=== PATIENT | female | born 1950 | race Caucasian/White ===

== ENCOUNTER → 2017-01-02 | Outpatient (REF) | payer MEDICARE, OTHER ==
[~2017-01-02] MED LIST: BIOT50004 PO; CENTTAB47 PO; FISH5CAP PO; LEVO100T5 PO; OMEP40CA2 PO; VITA200028 PO
[2017-01-02 17:35] LABS: ALBUMIN 3.9 GM/DL (3.2-5.2); ALBUMIN/GLOBULIN RATIO 1.26 (1.00-1.93); ALKALINE PHOSPHATASE 132 U/L (45-117); ALT/SGPT 30 U/L (12-78); ANION GAP 7 MEQ/L (8-16); AST/SGOT 19 U/L (15-37); BILIRUBIN,TOTAL 0.5 MG/DL (0.2-1.0); BLOOD UREA NITROGEN 12 MG/DL (7-18); CALCIUM LEVEL 8.8 MG/DL (8.8-10.2); CARBON DIOXIDE LEVEL 29 MEQ/L (21-32); CHLORIDE LEVEL 107 MEQ/L (98-107); FREE T4 1.23 NG/DL (0.76-1.46); GLOMERULAR FILTRATION RATE > 60.0 (>45); GLUCOSE, FASTING 87 MG/DL (80-110); SODIUM LEVEL 143 MEQ/L (136-145)
== END ==
LOC: M SFHCPLAZ 12:10
PROVIDERS: ATTEND Nurse Practitioner Family
DX: F32.9 Major depressive disorder, single episode, unspecified (principal); E03.9 Hypothyroidism, unspecified; E55.9 Vitamin D deficiency, unspecified

== ENCOUNTER → 2017-01-17 | Outpatient (REF) | payer MEDICARE, MEDICAID | LOC: M SFHCPLAZ 11:27 | PROVIDERS: ATTEND Nurse Practitioner Family | DX: Z11.59 Encounter for screening for other viral diseases (principal); Z11.4 Encounter for screening for human immunodeficiency virus [HIV] | CPT/HCPCS: 36415; 86803; 87899; G0463 ==

== ENCOUNTER → 2017-06-24 | Outpatient (REF) | payer MEDICARE, OTHER ==
[2017-06-24 15:56] LABS: ALBUMIN 3.9 GM/DL (3.2-5.2); ALBUMIN/GLOBULIN RATIO 1.18 (1.00-1.93); ALKALINE PHOSPHATASE 120 U/L (45-117); ALT/SGPT 30 U/L (12-78); ANION GAP 6 MEQ/L (8-16); AST/SGOT 19 U/L (15-37); BILIRUBIN,TOTAL 0.5 MG/DL (0.2-1.0); BLOOD UREA NITROGEN 16 MG/DL (7-18); CALCIUM LEVEL 9.3 MG/DL (8.8-10.2); CARBON DIOXIDE LEVEL 29 MEQ/L (21-32); CHLORIDE LEVEL 107 MEQ/L (98-107); CHOLESTEROL LEVEL 225 MG/DL (<200); CREATININE FOR GFR 0.72 MG/DL (0.55-1.02); FREE T4 1.26 NG/DL (0.76-1.46); GLOMERULAR FILTRATION RATE > 60.0 (>45); GLUCOSE, FASTING 77 MG/DL (80-110); POTASSIUM SERUM 3.9 MEQ/L (3.5-5.1); SODIUM LEVEL 142 MEQ/L (136-145); TOTAL PROTEIN 7.2 GM/DL (6.4-8.2); TRIGLYCERIDES LEVEL 152 MG/DL (<150)
== END ==
LOC: M SFHCPLAZ 10:47
PROVIDERS: ATTEND Nurse Practitioner Family
DX: E78.2 Mixed hyperlipidemia (principal); E03.9 Hypothyroidism, unspecified; E55.9 Vitamin D deficiency, unspecified

== ENCOUNTER → 2017-08-04 | Outpatient (CLI) | payer MEDICARE, MEDICAID ==
--- NOTE | 2017-08-04 15:19 | REPMRS ---
Patient History The patient states she had a clinical breast exam in 06/2017. Patient is postmenopausal and is nulliparous. No known family history of cancer. Digital Woman Screen Mammo: August 04, 2017 - Exam #: [id number] Bilateral CC and MLO view(s) were taken. Technologist: Shiloh Bardales, Technologist Prior study comparison: April 09, 2016, digital woman screen mammo performed at [facility] to [facility]. November 23, 2014, digital woman screen mammo performed at [facility] to [facility]. FINDINGS: There are scattered fibroglandular densities. There is a fairly symmetric fibroglandular pattern in both breasts. There has been no interval development of masses, areas of architectural distortion or clusters of microcalcifications typical of malignancy. ASSESSMENT: BI-RADS/ACR category 2 mammogram. Benign finding(s). Recommendation Routine screening mammogram of both breasts in 1 year (for women over age 40). This mammogram was interpreted with the aid of an FDA-approved computer-aided dectection system. Electronically Signed By: Shade Hein MD 08/04/17 [id number]
== END ==
LOC: M WHC 13:44
PROVIDERS: ATTEND Nurse Practitioner Family
DX: Z12.31 Encounter for screening mammogram for malignant neoplasm of breast (principal)

== ENCOUNTER → 2017-12-23 | Outpatient (REF) | payer MEDICARE ==
[2017-12-23 15:55] LABS: FREE T4 0.98 NG/DL (0.76-1.46)
== END ==
LOC: M SFHCPLAZ 11:55
DX: E03.9 Hypothyroidism, unspecified (principal); E55.9 Vitamin D deficiency, unspecified
CPT/HCPCS: 84443

== ENCOUNTER → 2018-01-06 | Outpatient (CLI) | payer MEDICARE, MEDICAID | LOC: M WHC 09:22 | DX: R10.32 Left lower quadrant pain (principal) | CPT/HCPCS: 76830 ==

== ENCOUNTER → 2018-01-22 | Outpatient (REF) | payer MEDICARE, MEDICAID ==
[2018-01-22 13:33] LABS: BASO % 0.7 % (0.0-1.0); EOS # 0.2 10^3/uL (0.0-0.50); EOS % 2.6 % (0.0-3.0); HEMATOCRIT 41.6 % (36.0-47.0); HEMOGLOBIN 14.2 g/dl (12.0-15.5); IMMATURE GRANULOCYTE % 0.3 % (0-3.0); LYMPH # 1.6 10^3/uL (1.5-4.5); LYMPH % 26.7 % (24.0-44.0); MEAN CORPUSCULAR HEMOGLOBIN 29.3 pg (27.0-33.0); MEAN CORPUSCULAR HGB CONC 34.1 g/dl (32.0-36.5); MONO # 0.5 10^3/uL (0.0-0.8); MONO % 9.3 % (0.0-5.0); NEUTROPHILS # 3.5 10^3/uL (1.8-7.7); NEUTROPHILS % 60.4 % (36.0-66.0); PLATELET COUNT, AUTOMATED 218 10^3/uL (150-450); RED BLOOD COUNT 4.84 10^6/uL (4.00-5.40); RED CELL DISTRIBUTION WIDTH 13.1 % (11.5-14.5); WHITE BLOOD COUNT 5.8 10^3/uL (4.0-10.0)
[2018-01-22 14:16] LABS: ALBUMIN 4.2 GM/DL (3.2-5.2); ALKALINE PHOSPHATASE 142 U/L (45-117); ALT/SGPT 26 U/L (12-78); ANION GAP 7 MEQ/L (8-16); AST/SGOT 22 U/L (7-37); BILIRUBIN,TOTAL 0.8 MG/DL (0.2-1.0); BLOOD UREA NITROGEN 15 MG/DL (7-18); CALCIUM LEVEL 9.4 MG/DL (8.8-10.2); CARBON DIOXIDE LEVEL 30 MEQ/L (21-32); CHLORIDE LEVEL 106 MEQ/L (98-107); CREATININE FOR GFR 0.87 MG/DL (0.55-1.30); GLOMERULAR FILTRATION RATE > 60.0 (>45); GLUCOSE, FASTING 98 MG/DL (70-100); POTASSIUM SERUM 4.4 MEQ/L (3.5-5.1); SODIUM LEVEL 143 MEQ/L (136-145); TOTAL PROTEIN 7.7 GM/DL (6.4-8.2)
== END ==
LOC: M SFHCPLAZ 11:38
DX: R10.32 Left lower quadrant pain (principal)
CPT/HCPCS: 80053

== ENCOUNTER 2018-02-20 12:37 | Emergency (ER) | payer MEDICARE, MEDICAID ==
[2018-02-20] MEDS: KETOROLAC TROMETHAMINE 10 MG TAB PO (13:47)
== END 2018-02-20 15:43 | disposition home or self-care (01) ==
LOC: M ED 12:37
DX: S83.92XA Sprain of unspecified site of left knee, initial encounter (principal); W10.8XXA Fall (on) (from) other stairs and steps, initial encounter; Y92.018 Other place in single-family (private) house as the place of occurrence of the external cause; E03.9 Hypothyroidism, unspecified; Z79.890 Hormone replacement therapy; Z88.5 Allergy status to narcotic agent; Z88.8 Allergy status to other drugs, medicaments and biological substances
CPT/HCPCS: 73564

== ENCOUNTER → 2018-04-30 | Outpatient (REF) | payer MEDICARE, MEDICAID ==
[2018-04-30 16:09] LABS: FREE T4 1.16 NG/DL (0.76-1.46)
== END ==
LOC: M SFHCPLAZ 12:55
DX: E03.9 Hypothyroidism, unspecified (principal); E55.9 Vitamin D deficiency, unspecified
CPT/HCPCS: 84443

== ENCOUNTER → 2018-08-05 | Outpatient (REF) | payer MEDICARE, MEDICAID ==
[2018-08-05 12:28] LABS: ALBUMIN 3.7 GM/DL (3.2-5.2); ALBUMIN/GLOBULIN RATIO 1.19 (1.00-1.93); ALKALINE PHOSPHATASE 114 U/L (45-117); ALT/SGPT 31 U/L (12-78); ANION GAP 8 MEQ/L (8-16); AST/SGOT 22 U/L (7-37); BILIRUBIN,TOTAL 0.5 MG/DL (0.2-1.0); BLOOD UREA NITROGEN 11 MG/DL (7-18); CARBON DIOXIDE LEVEL 29 MEQ/L (21-32); CHLORIDE LEVEL 107 MEQ/L (98-107); CHOLESTEROL LEVEL 207 MG/DL (<200); CHOLESTEROL RISK RATIO 3.763 (<5); CREATININE FOR GFR 0.75 MG/DL (0.55-1.30); FREE T4 1.22 NG/DL (0.76-1.46); GLOMERULAR FILTRATION RATE > 60.0 (>45); GLUCOSE, FASTING 89 MG/DL (70-100); HDL CHOLESTEROL 55 MG/DL (>40); LDL CHOLESTEROL 111 MG/DL (<100); NON-HDL-C 152 MG/DL; POTASSIUM SERUM 4.3 MEQ/L (3.5-5.1); SODIUM LEVEL 144 MEQ/L (136-145); THYROID STIMULATING HORMONE 0.605 uIU/ML (0.358-3.740); TOTAL 25(OH) VITAMIN D 47.7 NG/ML (30.0-100.0); TOTAL PROTEIN 6.8 GM/DL (6.4-8.2); TRIGLYCERIDES LEVEL 206 MG/DL (<150)
== END ==
LOC: M SFHCPLAZ 08:05
DX: E78.2 Mixed hyperlipidemia (principal); E03.9 Hypothyroidism, unspecified; E55.9 Vitamin D deficiency, unspecified
CPT/HCPCS: 84443

== ENCOUNTER → 2018-11-05 | Outpatient (CLI) | payer MEDICARE, MEDICAID ==
[~2018-11-05] MED LIST changes: +MOBI4TAB PO
[2018-11-05 09:14] LABS: ALT/SGPT 26 U/L (12-78); BILIRUBIN,TOTAL 0.6 MG/DL (0.2-1.0); BLOOD UREA NITROGEN 12 MG/DL (7-18); CALCIUM LEVEL 9.6 MG/DL (8.8-10.2); CARBON DIOXIDE LEVEL 28 MEQ/L (21-32); CHLORIDE LEVEL 106 MEQ/L (98-107); CHOLESTEROL LEVEL 250 MG/DL (<200); CHOLESTEROL RISK RATIO 3.846 (<5); CREATININE FOR GFR 0.84 MG/DL (0.55-1.30); FREE T4 1.31 NG/DL (0.76-1.46); GLOMERULAR FILTRATION RATE > 60.0 (>45); GLUCOSE, FASTING 97 MG/DL (70-100); HDL CHOLESTEROL 65 MG/DL (>40); LDL CHOLESTEROL 161 MG/DL (<100); NON-HDL-C 185 MG/DL; POTASSIUM SERUM 3.9 MEQ/L (3.5-5.1); SODIUM LEVEL 141 MEQ/L (136-145); TRIGLYCERIDES LEVEL 120 MG/DL (<150)
== END ==
LOC: M LAB 08:04
PROVIDERS: ATTEND Nurse Practitioner Family
DX: E78.2 Mixed hyperlipidemia (principal)

== ENCOUNTER → 2019-01-18 | Outpatient (REF) | payer MEDICARE, MEDICAID ==
[2019-01-18 12:58] LABS: ALT/SGPT 34 U/L (12-78); BILIRUBIN,TOTAL 0.6 MG/DL (0.2-1.0); BLOOD UREA NITROGEN 14 MG/DL (7-18); CALCIUM LEVEL 9.5 MG/DL (8.8-10.2); CARBON DIOXIDE LEVEL 30 MEQ/L (21-32); CHLORIDE LEVEL 107 MEQ/L (98-107); CHOLESTEROL LEVEL 207 MG/DL (<200); CHOLESTEROL RISK RATIO 3.285 (<5); CREATININE FOR GFR 0.86 MG/DL (0.55-1.30); FREE T4 1.29 NG/DL (0.76-1.46); GLOMERULAR FILTRATION RATE > 60.0 (>45); GLUCOSE, FASTING 96 MG/DL (70-100); HDL CHOLESTEROL 63 MG/DL (>40); LDL CHOLESTEROL 114 MG/DL (<100); NON-HDL-C 144 MG/DL; POTASSIUM SERUM 4.6 MEQ/L (3.5-5.1); SODIUM LEVEL 141 MEQ/L (136-145); TOTAL PROTEIN 6.9 GM/DL (6.4-8.2); TRIGLYCERIDES LEVEL 149 MG/DL (<150)
== END ==
LOC: M SFHCPLAZ 08:17
PROVIDERS: ATTEND Nurse Practitioner Family
DX: E78.2 Mixed hyperlipidemia (principal); E03.9 Hypothyroidism, unspecified

== ENCOUNTER → 2019-01-26 | Outpatient (REF) | payer MEDICARE, MEDICAID | LOC: M SFHCPLAZ 16:10 | PROVIDERS: ATTEND Nurse Practitioner Family | DX: R31.0 Gross hematuria (principal); Z53.8 Procedure and treatment not carried out for other reasons ==

== ENCOUNTER → 2019-01-27 | Outpatient (REF) | payer MEDICARE, MEDICAID ==
[2019-01-27 17:05] LABS: APPEARANCE, URINE CLEAR (CLEAR); BACTERIA, URINE AUTO NEGATIVE (NEGATIVE); BILIRUBIN, URINE AUTO NEGATIVE (NEGATIVE); BLOOD, URINE BLOOD NEGATIVE (NEGATIVE); COLOR, URINE YELLOW (YELLOW); GLUCOSE, URINE (UA) AUTO NEGATIVE (NEGATIVE); KETONE, URINE AUTO NEGATIVE (NEGATIVE); LEUKOCYTE ESTERASE, URINE AUTO TRACE (NEGATIVE); NITRITE, URINE AUTO NEGATIVE (NEGATIVE); PROTEIN, URINE AUTO NEGATIVE (NEGATIVE); RBC, URINE AUTO 2 /HPF (0-3); SQUAMOUS EPITHELIAL CELL UR AU 0 /HPF (0-6); UROBILINOGEN, URINE AUTO 0.2 mg/dL (0.0-2.0); WBC, URINE AUTO 1 /HPF (0-3)
[2019-01-27 17:22] LABS: BASO % 0.7 % (0.0-1.0); EOS # 0.1 10^3/uL (0.0-0.50); HEMATOCRIT 40.4 % (36.0-47.0); HEMOGLOBIN 13.3 g/dl (12.0-15.5); LYMPH # 1.3 10^3/uL (1.5-4.5); LYMPH % 22.3 % (24.0-44.0); MEAN CORPUSCULAR HEMOGLOBIN 29.2 pg (27.0-33.0); MEAN CORPUSCULAR HGB CONC 32.9 g/dl (32.0-36.5); MEAN CORPUSCULAR VOLUME 88.8 fl (80.0-96.0); MONO # 0.5 10^3/uL (0.0-0.8); MONO % 7.8 % (0.0-5.0); NEUTROPHILS % 66.7 % (36.0-66.0); PLATELET COUNT, AUTOMATED 198 10^3/uL (150-450); RED BLOOD COUNT 4.55 10^6/uL (4.00-5.40); WHITE BLOOD COUNT 5.9 10^3/uL (4.0-10.0)
== END ==
LOC: M SFHCPLAZ 12:08
PROVIDERS: ATTEND Nurse Practitioner Family
DX: R31.0 Gross hematuria (principal); Z12.11 Encounter for screening for malignant neoplasm of colon
CPT/HCPCS: 36415; 81001; 85025; 87086; G0328

== ENCOUNTER → 2019-02-03 | Outpatient (CLI) | payer MEDICARE, MEDICAID ==
--- NOTE | 2019-02-03 07:33 | REP ---
Renal ultrasound for gross hematuria: Comparison is the abdomen and pelvis CT dated 04/08/2011. The right kidney measures 10.3 x 5.2 x 4.3 cm and is normal size. The left kidney measures 9.4 x 5.9 x 4.7 and is in the low normal size range. Renal cortical echogenicity is normal bilaterally. There is no hydronephrosis on the right on the left. There are no renal calculi. There are no solid or cystic renal masses. Bladder: The bladder appears adequately distended. No bladder wall masses or polyps are identified. Impression: The left kidney is in the low normal size range. Otherwise, negative renal and bladder ultrasound. Electronically Signed by Shade Ayala MD 02/03/2019 07:25 A
== END ==
LOC: M RAD 06:14
PROVIDERS: ATTEND Nurse Practitioner Family
DX: R31.0 Gross hematuria (principal)

== ENCOUNTER → 2019-03-30 | Outpatient (CLI) | payer MEDICARE, MEDICAID ==
--- NOTE | 2019-03-30 11:02 | REPMRS ---
Patient History The patient states she had a clinical breast exam in 02/2019. No known family history of cancer. 3D TOMOSYNTHESIS WAS PERFORMED. The [facility] lifetime risk for breast cancer is 6.9%. Digital Woman Screen Mammo: March 30, 2019 - Exam #: [id number] Bilateral CC and MLO view(s) were taken. Technologist: Jackeline Harp Technologist Prior study comparison: August 04, 2017, digital woman screen mammo performed at [facility]. April 09, 2016, digital woman screen mammo performed at [facility]. FINDINGS: There are scattered fibroglandular densities. There is a fairly symmetric fibroglandular pattern in both breasts. There has been no interval development of masses, areas of architectural distortion or clusters of microcalcifications typical of malignancy. Assessment: BI-RADS/ACR category 2 mammogram. Benign Findings. Recommendation Routine screening mammogram of both breasts in 1 year (for women over age 40). This mammogram was interpreted with the aid of an FDA-approved computer-aided dectection system. Electronically Signed By: Shade Hein MD 03/30/19 [id number]
== END ==
LOC: M WHC 08:07
PROVIDERS: ATTEND Nurse Practitioner Family
DX: Z12.31 Encounter for screening mammogram for malignant neoplasm of breast (principal)

== ENCOUNTER → 2019-07-16 | Outpatient (REF) | payer MEDICARE, MEDICAID ==
[~2019-07-16] MED LIST changes: -OMEP40CA2 PO; +OMEP40CA97 PO
[2019-07-16 15:34] LABS: ALBUMIN 3.8 GM/DL (3.2-5.2); ALT/SGPT 28 U/L (12-78); BILIRUBIN,TOTAL 0.6 MG/DL (0.2-1.0); BLOOD UREA NITROGEN 17 MG/DL (7-18); CALCIUM LEVEL 9.3 MG/DL (8.8-10.2); CARBON DIOXIDE LEVEL 29 MEQ/L (21-32); CHLORIDE LEVEL 107 MEQ/L (98-107); CHOLESTEROL LEVEL 233 MG/DL (<200); CHOLESTEROL RISK RATIO 3.819 (<5); CREATININE FOR GFR 0.82 MG/DL (0.55-1.30); FREE T4 1.07 NG/DL (0.76-1.46); GLOMERULAR FILTRATION RATE > 60.0 (>39); GLUCOSE, FASTING 92 MG/DL (70-100); HDL CHOLESTEROL 61 MG/DL (>40); LDL CHOLESTEROL 133 MG/DL (<100); NON-HDL-C 172 MG/DL; POTASSIUM SERUM 4.1 MEQ/L (3.5-5.1); SODIUM LEVEL 142 MEQ/L (136-145); TOTAL PROTEIN 7.1 GM/DL (6.4-8.2); TRIGLYCERIDES LEVEL 195 MG/DL (<150)
== END ==
LOC: M SFHCPLAZ 12:43
PROVIDERS: ATTEND Nurse Practitioner Family
DX: E78.2 Mixed hyperlipidemia (principal); E03.9 Hypothyroidism, unspecified; E55.9 Vitamin D deficiency, unspecified

== ENCOUNTER → 2019-09-29 | Outpatient (REF) | payer MEDICARE, MEDICAID ==
[~2019-09-29] MED LIST changes: +BAYE500T2 PO
== END ==
LOC: M LAB REF 09:44
PROVIDERS: ATTEND Dermatology
DX: L82.1 Other seborrheic keratosis (principal); D23.5 Other benign neoplasm of skin of trunk; L81.4 Other melanin hyperpigmentation; L57.8 Other skin changes due to chronic exposure to nonionizing radiation

== ENCOUNTER 2019-10-15 14:27 | Emergency (ER) | payer MEDICARE, MEDICAID ==
[~2019-10-15] VITALS: Ht 157.5 cm; Wt 87.3 kg
[~2019-10-15 14:27] MED LIST changes: -BAYE500T2 PO
[2019-10-15] MEDS ORDERED: BAYE500T2 PO (15:09)
[2019-10-15] MEDS ORDERED: PANTOPRAZOLE 40MG TAB (PROTONIX) PO ONE (16:00)
[2019-10-15] MEDS ORDERED: ACETAMINOPHEN 650MG ER TAB (TYLENOL ARTHRITIS) PO PRN (16:00)
--- NOTE | 2019-10-15 16:32 | REP ---
Thoracic spine four views: Comparison is the PA and lateral chest dated 05/30/2008. Vertebral body heights, interspacing alignment are normal and unchanged. There is mild degenerative disc disease in the mid thoracic spine. The pedicles are unremarkable. There are no lytic, blastic or destructive changes. Impression: Mild mid thoracic spine degenerative disc disease. Electronically Signed by Shade Ayala MD 10/15/2019 04:24 P
--- NOTE | 2019-10-15 16:33 | REP ---
Lumbar spine five views: There are no comparisons. There is scoliosis convex right. Vertebral body heights and alignment are normal. There is degenerative disc disease from L1 through L4. There is no spondylolysis or spondylolisthesis. The pedicles, facets and sacroiliac articulations are unremarkable. Impression: Scoliosis and degenerative disc disease. Otherwise, negative lumbar spine. Electronically Signed by Shade Ayala MD 10/15/2019 04:25 P
[2019-10-15 16:58] VITALS: BP 145/74
== END 2019-10-15 16:59 | disposition home or self-care (01) ==
LOC: M ED 14:27
DX: M51.35 Other intervertebral disc degeneration, thoracolumbar region (principal); M51.37 Other intervertebral disc degeneration, lumbosacral region; Z88.5 Allergy status to narcotic agent; Z88.8 Allergy status to other drugs, medicaments and biological substances; Z79.899 Other long term (current) drug therapy; Z79.82 Long term (current) use of aspirin; Z79.890 Hormone replacement therapy

== ENCOUNTER → 2019-10-21 | Outpatient (CLI) | payer MEDICARE, MEDICAID ==
[~2019-10-21] MED LIST changes: +BAYE500T2 PO; +GASTROGRAFIN SOLUTION 30ML (Q9963) As Ordered ONE; +ISOVUE-370 76% 100ML VIAL (Q9967) As Ordered ONE
[2019-10-21 12:39] LABS: BASO # 0.1 10^3/uL (0.0-0.2); BASO % 0.7 % (0.0-1.0); EOS # 0.2 10^3/uL (0.0-0.5); EOS % 2.5 % (0.0-3.0); HEMATOCRIT 41.1 % (36.0-47.0); HEMOGLOBIN 14.1 g/dl (12.0-15.5); LYMPH # 1.6 10^3/uL (1.5-5.0); LYMPH % 24.1 % (24.0-44.0); MEAN CORPUSCULAR HEMOGLOBIN 29.7 pg (27.0-33.0); MEAN CORPUSCULAR HGB CONC 34.3 g/dl (32.0-36.5); MEAN CORPUSCULAR VOLUME 86.5 fl (80.0-96.0); MONO # 0.6 10^3/uL (0.0-0.8); MONO % 8.4 % (0.0-5.0); NEUTROPHILS # 4.3 10^3/uL (1.5-8.5); PLATELET COUNT, AUTOMATED 229 10^3/uL (150-450); RED BLOOD COUNT 4.75 10^6/uL (4.00-5.40); WHITE BLOOD COUNT 6.7 10^3/uL (4.0-10.0)
[2019-10-21 13:07] LABS: ALBUMIN 4.1 GM/DL (3.2-5.2); ALT/SGPT 25 U/L (12-78); AMYLASE 39 U/L (25-115); BILIRUBIN,TOTAL 0.5 MG/DL (0.2-1.0); BLOOD UREA NITROGEN 14 MG/DL (7-18); CALCIUM LEVEL 9.4 MG/DL (8.8-10.2); CARBON DIOXIDE LEVEL 28 MEQ/L (21-32); CHLORIDE LEVEL 110 MEQ/L (98-107); CREATININE FOR GFR 0.83 MG/DL (0.55-1.30); GLOMERULAR FILTRATION RATE > 60.0 (>39); GLUCOSE, FASTING 91 MG/DL (70-100); LIPASE 119 U/L (73-393); POTASSIUM SERUM 3.8 MEQ/L (3.5-5.1); SODIUM LEVEL 143 MEQ/L (136-145); TOTAL PROTEIN 7.3 GM/DL (6.4-8.2)
--- NOTE | 2019-10-21 14:38 | REP ---
CT of the abdomen and pelvis with IV contrast, without bowel contrast for rectal bleeding: Comparison is 04/08/2011. The visualized lung smith are unremarkable except for a small infiltrate at the inferior tip of the lingula. The hepatic parenchyma is homogeneous. The gallbladder is unremarkable. The pancreas and spleen are unremarkable except for a few splenic calcified granulomas. The adrenals are unremarkable. The kidneys are unremarkable. The abdominal aorta is unremarkable. There is no periaortic adenopathy or mass. There is no bowel distension or obstruction. There is no evidence of bowel or mesentery inflammation. There is no fluid or abscess. There is no diverticulosis or diverticulitis. Pelvis: The appendix is unremarkable. The uterus, adnexa and bladder are unremarkable. There is no adenopathy or ascites. There is a small fat-containing umbilical hernia. On the prior study there was a lipoma in the anterolateral abdominal wall on the left. This is no longer present. Impression: The bowel and mesentery are unremarkable by CT. No bowel masses are identified, however, CT is insensitive. No bowel or mesenteric inflammatory changes are identified. There is no bowel distension or obstruction. There is a small infiltrate at the inferior tip of the lingula in the visualized lower lung smith. Otherwise, negative CT of the abdomen pelvis except for a small fat-containing umbilical hernia. Electronically Signed by Shade Ayala MD 10/21/2019 02:30 P
== END ==
LOC: M RAD 11:34
PROVIDERS: ATTEND Nurse Practitioner Family
DX: K42.9 Umbilical hernia without obstruction or gangrene (principal); R91.8 Other nonspecific abnormal finding of lung field; K62.5 Hemorrhage of anus and rectum; R10.84 Generalized abdominal pain
CPT/HCPCS: 36415; 74177; 80053; 82150; 83690; 85025; Q9963; Q9967

== ENCOUNTER → 2019-10-21 | Outpatient (REF) | payer MEDICARE, MEDICAID ==
[~2019-10-21] MED LIST changes: -GASTROGRAFIN SOLUTION 30ML (Q9963) As Ordered ONE; -ISOVUE-370 76% 100ML VIAL (Q9967) As Ordered ONE
== END ==
LOC: M SFHCPLAZ 10:46
PROVIDERS: ATTEND Nurse Practitioner Family
DX: K62.5 Hemorrhage of anus and rectum (principal); R10.84 Generalized abdominal pain; Z53.8 Procedure and treatment not carried out for other reasons

== ENCOUNTER → 2019-11-25 | Day surgery (SDC) | payer MEDICARE, MEDICAID ==
[~2019-11-25] VITALS: Ht 157.5 cm; Wt 85.7 kg
[~2019-11-25] MED LIST changes: +CENT1TAB PO; +KP F1200 PO; +LIDOCAINE 2% INJ 100 MG/5 ML SDV (FOR ANES.) As Ordered ONE; +NS 1,000 ML IV ONE; +propofoL 200 MG/20 ML VIAL As Ordered ONE
--- NOTE | 2019-11-25 08:59 | ROOR ---
Patient Name: Nancy Pineda Procedure Date: 11/25/2019 8:25 AM Date of : 1950 Age: 69 Room: [facility] Gender: Female Note Status: Finalized Procedure: Colonoscopy Indications: Screening for colorectal malignant neoplasm Providers: Raj Carrillo Jr, MD Referring MD: Becky Hill NP Requesting Provider: Medicines: Propofol per Anesthesia Complications: No immediate complications. Procedure: Pre-Anesthesia Assessment: - Prior to the procedure, a History and Physical was performed, and patient medications and allergies were reviewed. The patient is competent. The risks and benefits of the procedure and the sedation options and risks were discussed with the patient. All questions were answered and informed consent was obtained. Patient identification and proposed procedure were verified by the physician and the nurse in the pre-procedure area and in the procedure room. Mental Status Examination: alert and oriented. Airway Examination: normal oropharyngeal airway and neck mobility. Respiratory Examination: clear to auscultation. CV Examination: normal. ASA Grade Assessment: II - A patient with mild systemic disease. After reviewing the risks and benefits, the patient was deemed in satisfactory condition to undergo the procedure. The anesthesia plan was to use moderate sedation / analgesia (conscious sedation). Immediately prior to administration of medications, the patient was re-assessed for adequacy to receive sedatives. The heart rate, respiratory rate, oxygen saturations, blood pressure, adequacy of pulmonary ventilation, and response to care were monitored throughout the procedure. The physical status of the patient was re-assessed after the procedure. The Colonoscope was introduced through the anus and advanced to the cecum, identified by appendiceal orifice and ileocecal valve. The colonoscopy was performed without difficulty. The patient tolerated the procedure well. The quality of the bowel preparation was adequate. Findings: The rectum, recto-sigmoid colon, sigmoid colon, descending colon, transverse colon, ascending colon, cecum, appendiceal orifice and ileocecal valve appeared normal. Non-bleeding external and internal hemorrhoids were found during endoscopy. The hemorrhoids were moderate. Impression: - The rectum, recto-sigmoid colon, sigmoid colon, descending colon, transverse colon, ascending colon, cecum, appendiceal orifice and ileocecal valve are normal. - Non-bleeding external and internal hemorrhoids. - No specimens collected. Recommendation: - Repeat colonoscopy in 10 years for screening purposes. Raj Carrillo MD Raj Carrillo Jr, MD 11/25/2019 8:59:05 AM Electronically signed by Raj Carrillo Jr, MD Number of Addenda: 0 Note Initiated On: 11/25/2019 8:25 AM Estimated Blood Loss: Estimated blood loss: none.
[2019-11-25 09:05] VITALS: BP 163/72
== END | disposition home or self-care (01) ==
LOC: M OPP 07:32
PROVIDERS: ATTEND Surgery
DX: Z12.11 Encounter for screening for malignant neoplasm of colon (principal); K64.8 Other hemorrhoids; I10 Essential (primary) hypertension; E03.9 Hypothyroidism, unspecified; K21.9 Gastro-esophageal reflux disease without esophagitis; M19.90 Unspecified osteoarthritis, unspecified site; F41.9 Anxiety disorder, unspecified; F32.9 Major depressive disorder, single episode, unspecified; Z79.82 Long term (current) use of aspirin; Z79.899 Other long term (current) drug therapy; Z88.6 Allergy status to analgesic agent; Z88.5 Allergy status to narcotic agent

== ENCOUNTER → 2020-01-14 | Outpatient (REF) | payer MEDICARE, MEDICAID ==
[~2020-01-14] MED LIST changes: -LIDOCAINE 2% INJ 100 MG/5 ML SDV (FOR ANES.) As Ordered ONE; -NS 1,000 ML IV ONE; -propofoL 200 MG/20 ML VIAL As Ordered ONE
[2020-01-14 18:18] LABS: FREE T4 1.27 NG/DL (0.76-1.46); THYROID STIMULATING HORMONE 0.371 uIU/ML (0.358-3.740)
[2020-01-14 18:21] LABS: TOTAL 25(OH) VITAMIN D 35.2 NG/ML (30.0-100.0)
== END ==
LOC: M PLALAB 13:37
PROVIDERS: ATTEND Nurse Practitioner Family
DX: E03.9 Hypothyroidism, unspecified (principal); E55.9 Vitamin D deficiency, unspecified

== ENCOUNTER → 2020-06-21 | Outpatient (CLI) | payer MEDICARE, MEDICAID ==
--- NOTE | 2020-06-21 10:39 | REPMRS ---
Patient History The patient states she had a clinical breast exam in March 2020. No known family history of cancer. 3D TOMOSYNTHESIS WAS PERFORMED. The [facility] lifetime risk for breast cancer is 6.2%. VOLPARA DENSITY A. Digital Woman Screen Mammo: June 21, 2020 - Exam #: [id number] Bilateral CC and MLO view(s) were taken. Technologist: Camilla Reinoso, Technologist Prior study comparison: March 30, 2019, bilateral digital woman screen mammo performed at [facility]. August 04, 2017, digital woman screen mammo performed at [facility]. FINDINGS: There are scattered fibroglandular densities. There has been no change in the appearance of the mammogram from the prior studies. There is a mild amount of residual fibroglandular tissue which is fairly symmetric. There is no interval development of dominant mass, architectural distortion, or clustered microcalcification suggestive of malignancy. Assessment: BI-RADS/ACR category 1 mammogram. Negative Mammogram. Recommendation Routine screening mammogram in 1 year (for women over age 40). This mammogram was interpreted with the aid of an FDA-approved computer-aided dectection system. Electronically Signed By: Shade Hein MD 06/21/20 [id number]
== END ==
LOC: M WHC 09:37
PROVIDERS: ATTEND Nurse Practitioner Family
DX: Z12.31 Encounter for screening mammogram for malignant neoplasm of breast (principal)

== ENCOUNTER → 2020-07-12 | Outpatient (REF) | payer MEDICARE, MEDICAID ==
[2020-07-12 15:50] LABS: ALBUMIN 3.8 GM/DL (3.2-5.2); ALT/SGPT 30 U/L (12-78); BILIRUBIN,TOTAL 0.5 MG/DL (0.2-1.0); BLOOD UREA NITROGEN 10 MG/DL (7-18); CALCIUM LEVEL 9.3 MG/DL (8.8-10.2); CARBON DIOXIDE LEVEL 30 MEQ/L (21-32); CHLORIDE LEVEL 108 MEQ/L (98-107); CHOLESTEROL LEVEL 234 MG/DL (<200); CHOLESTEROL RISK RATIO 3.656 (<5); CREATININE FOR GFR 0.74 MG/DL (0.55-1.30); FREE T4 1.19 NG/DL (0.76-1.46); GLOMERULAR FILTRATION RATE > 60.0 (>39); GLUCOSE, FASTING 89 MG/DL (70-100); HDL CHOLESTEROL 64 MG/DL (>40); LDL CHOLESTEROL 123 MG/DL (<100); NON-HDL-C 170 MG/DL; POTASSIUM SERUM 4.5 MEQ/L (3.5-5.1); SODIUM LEVEL 141 MEQ/L (136-145); THYROID STIMULATING HORMONE 0.607 uIU/ML (0.358-3.740); TOTAL PROTEIN 7.3 GM/DL (6.4-8.2); TRIGLYCERIDES LEVEL 233 MG/DL (<150)
[2020-07-12 16:44] LABS: TOTAL 25(OH) VITAMIN D 29.1 NG/ML (30.0-100.0)
== END ==
LOC: M PLALAB 12:05
PROVIDERS: ATTEND Nurse Practitioner Family
DX: E03.9 Hypothyroidism, unspecified (principal); E78.2 Mixed hyperlipidemia; E55.9 Vitamin D deficiency, unspecified

== ENCOUNTER → 2021-01-08 | Outpatient (REF) | payer MEDICARE, MEDICAID ==
[2021-01-08 17:20] LABS: FREE T4 1.17 NG/DL (0.76-1.46); THYROID STIMULATING HORMONE 2.56 uIU/ML (0.358-3.740)
[2021-01-08 17:28] LABS: TOTAL 25(OH) VITAMIN D 29.8 NG/ML (30.0-100.0)
== END ==
LOC: M PLALAB 10:54
PROVIDERS: ATTEND Nurse Practitioner Family
DX: E03.9 Hypothyroidism, unspecified (principal); E55.9 Vitamin D deficiency, unspecified

== ENCOUNTER → 2021-03-07 | Outpatient (CLI) | payer MEDICARE, MEDICAID ==
[~2021-03-07] MED LIST changes: +OMEP40CA4 PO; -OMEP40CA97 PO
--- NOTE | 2021-03-07 15:47 | REPPI ---
INDICATION: R07.89 OTHER CHEST PAIN. COMPARISON: 05/30/2008 TECHNIQUE: PA and lateral views FINDINGS: There are mild basilar fibrotic changes status ". No acute patchy parenchymal opacities or pleural effusions have developed. The heart is not enlarged. The pleural angles are sharp. The osseous structures stable. IMPRESSION: There is no acute cardiopulmonary disease. <Electronically signed by James Knight > 03/07/21 [id number]
== END ==
LOC: M PLAIMG 12:52
PROVIDERS: ATTEND Nurse Practitioner Family
DX: R07.89 Other chest pain (principal); R00.2 Palpitations
CPT/HCPCS: 36415; 71046; 80053; 84484; 93005; G0463

== ENCOUNTER → 2021-03-07 | Outpatient (REF) | payer MEDICARE, MEDICAID ==
[2021-03-07 14:03] LABS: ALBUMIN 4.3 GM/DL (3.2-5.2); ALT/SGPT 25 U/L (12-78); BILIRUBIN,TOTAL 0.6 MG/DL (0.2-1.0); BLOOD UREA NITROGEN 17 MG/DL (7-18); CALCIUM LEVEL 9.5 MG/DL (8.8-10.2); CARBON DIOXIDE LEVEL 26 MEQ/L (21-32); CHLORIDE LEVEL 110 MEQ/L (98-107); CREATININE FOR GFR 0.77 MG/DL (0.55-1.30); GLOMERULAR FILTRATION RATE > 60.0 (>39); GLUCOSE, FASTING 90 MG/DL (70-100); SODIUM LEVEL 142 MEQ/L (136-145); TOTAL PROTEIN 7.4 GM/DL (6.4-8.2); TROPONIN I < 0.02 NG/ML (< 0.10)
== END ==
LOC: M SFHCPLAZ 12:10
PROVIDERS: ATTEND Nurse Practitioner Family
DX: R07.89 Other chest pain (principal); R00.2 Palpitations

== ENCOUNTER → 2021-04-18 | Outpatient (CLI) | payer MEDICARE, MEDICAID ==
[2021-04-18 12:06] LABS: BLOOD UREA NITROGEN 14 MG/DL (7-18); CALCIUM LEVEL 9.7 MG/DL (8.8-10.2); CARBON DIOXIDE LEVEL 28 MEQ/L (21-32); CHLORIDE LEVEL 108 MEQ/L (98-107); CREATININE FOR GFR 0.87 MG/DL (0.55-1.30); FREE T4 1.17 NG/DL (0.76-1.46); GLOMERULAR FILTRATION RATE > 60.0 (>39); GLUCOSE, FASTING 91 MG/DL (70-100); POTASSIUM SERUM 4.1 MEQ/L (3.5-5.1); SODIUM LEVEL 141 MEQ/L (136-145); TOTAL 25(OH) VITAMIN D 37.2 NG/ML (30.0-100.0)
== END ==
LOC: M PLALAB 08:05
PROVIDERS: ATTEND Nurse Practitioner Family
DX: R00.2 Palpitations (principal)

== ENCOUNTER → 2021-04-27 | Outpatient (CLI) | payer MEDICARE, MEDICAID | LOC: M PLALAB 14:53 | PROVIDERS: ATTEND Nurse Practitioner Family | DX: R06.00 Dyspnea, unspecified (principal) ==

== ENCOUNTER → 2021-05-18 | Outpatient (CLI) | payer MEDICARE, MEDICAID ==
--- NOTE | 2021-05-18 14:56 | REP ---
INDICATION: LEFT BREAST PAIN. Left breast pain with a possible lump in the medial aspect of the left breast for 2 years. Lump size of a cord ower. 9 o'clock position. COMPARISON: Comparison mammography June 21, 2020, March 30, 2019, and August 04, 2017. TECHNIQUE: A skin marker is affixed to the skin at the site of the palpable lump and routine views are obtained. These views are augmented by true mediolateral, magnified focal spot-compression CC and MLO views, and 3D tomography. Targeted left breast sonography is performed at the site of the palpable lump as well. This mammogram was interpreted with the aid of an FDA-approved computer-aided detection system. FINDINGS: On mammography, breast parenchyma is predominantly fat replaced. There are 2 stable well-circumscribed nodular densities in the lateral aspect of the left breast unchanged from multiple prior mammography including the 2017 prior study. In the medial aspect of the left breast where the skin marker is affixed denoting the site of the palpable lump, the breast parenchyma is fat replaced. No soft tissue mass is seen. No architectural distortion, microcalcification or worrisome skin changes appreciated. No mammographically suspicious abnormality. 3D tomography shows no additional abnormality. The Volpara volumetric breast density pattern is a. Targeted ultrasound: Targeted left breast sonography demonstrates fairly homogeneous fibroglandular background echotexture. There is an essentially isoechoic lobule of subcutaneous fat at the site of the palpable lump measuring 2.1 x 0.1 by 1.8 cm. This could be a subcutaneous lipoma. No sonographically suspicious finding is seen. IMPRESSION: BIRADS/ACR category 2 benign left breast mammographic and sonographic findings. This patient's Tyrer-Cuzick lifetime breast cancer risk assessment score is 5.8%. RECOMMENDATION: Repeat screening mammography recommended 1 year (for women over 40). Clinical follow-up regarding patient's breast symptoms. The patient letter being requested is M2. <Electronically signed by Jaime Hickey > 05/18/21 0009
== END ==
LOC: M WHC 13:22
PROVIDERS: ATTEND Nurse Practitioner Family
DX: N64.4 Mastodynia (principal)
CPT/HCPCS: 76642; 77065; G0279

== ENCOUNTER → 2021-08-10 | Outpatient (CLI) | payer MEDICARE, MEDICAID ==
--- NOTE | 2021-08-10 12:41 | REPMRS ---
Patient History The patient states she had a clinical breast exam in March 2021. Family history of colorectal cancer at age 94 in mother. Patient states no breast complaints today. Patient has signed MRS History Sheet. Digital Woman Screen Mammo: August 10, 2021 - Exam #: [id number] Bilateral CC and MLO view(s) were taken. Technologist: Camilla Reinoso Technologist Prior study comparison: May 18, 2021, left breast diagnostic unilateral mammo performed at [facility]. June 21, 2020, bilateral digital woman screen mammo performed at [facility]. FINDINGS: There are scattered fibroglandular densities. Screening. Digital screening (2D) mammography was performed bilaterally in the CC and MLO projections. Additionally, breast tomosynthesis (3D mammography) was performed bilaterally in the CC and MLO projections. Todays exam was compared to the prior exam/exams. By history, the patient has no complaints of a palpable breast abnormality or other significant breast complaints. The Volpara volumetric breast density category is A, the breasts are almost entirely fatty. The breasts are unchanged in size and shape. There are stable, focal asymmetries in the left breast. There are no willow-soft tissue densities or spiculated masses. There is no internal architectural distortion. There are no suspicious willow-calcific clusters. Skin thickening or nipple retraction is not present. IMPRESSION: BI-RADS Category 2- Benign Findings. There is no evidence of malignant alteration of the breasts. Followup examination recommended in one year. The lifetime Tyrer-Cuzick score is % This mammogram was read with the assistance of Lidia Vibrow,an FDA approved computer aided detection system for mammography. Negative x-ray reports should not delay surgical consultation if a dominant or clinically suspicious mass is present. Not all breast cancers can be identified by mammography. Therefore, we recommend that you continue to perform regular breast self-examination and physical examination and then promptly contact your physician of any concerns or changes. Adenosis and dense breasts may obscure an underlying neoplasm. No significant changes when compared with prior studies. Assessment: BI-RADS/ACR category 2 mammogram. Benign Findings. Recommendation Routine screening mammogram of both breasts in 1 year. Electronically Signed By: Darrian Grijalva MD 08/10/21 [id number]
== END ==
LOC: M WHC 12:07
PROVIDERS: ATTEND Nurse Practitioner Family
DX: Z12.31 Encounter for screening mammogram for malignant neoplasm of breast (principal)

== ENCOUNTER → 2021-09-26 | Outpatient (CLI) | payer MEDICARE ==
[2021-09-26 16:27] LABS: ALT/SGPT 25 U/L (12-78); BILIRUBIN,TOTAL 0.4 MG/DL (0.2-1.0); BLOOD UREA NITROGEN 12 MG/DL (7-18); CALCIUM LEVEL 9.8 MG/DL (8.8-10.2); CARBON DIOXIDE LEVEL 27 MEQ/L (21-32); CHLORIDE LEVEL 111 MEQ/L (98-107); CHOLESTEROL LEVEL 185 MG/DL (<200); CHOLESTEROL RISK RATIO 3.245 (<5); CREATININE FOR GFR 0.67 MG/DL (0.55-1.30); FREE T4 1.38 NG/DL (0.76-1.46); GLOMERULAR FILTRATION RATE > 60.0 (>39); GLUCOSE, FASTING 91 MG/DL (70-100); HDL CHOLESTEROL 57 MG/DL (>40); LDL CHOLESTEROL 103 MG/DL (<100); NON-HDL-C 128 MG/DL; POTASSIUM SERUM 4.5 MEQ/L (3.5-5.1); SODIUM LEVEL 144 MEQ/L (136-145); THYROID STIMULATING HORMONE 0.016 uIU/ML (0.358-3.740); TOTAL 25(OH) VITAMIN D 38.7 NG/ML (30.0-100.0); TOTAL PROTEIN 6.8 GM/DL (6.4-8.2); TRIGLYCERIDES LEVEL 127 MG/DL (<150)
== END ==
LOC: M PLALAB 14:27
PROVIDERS: ATTEND Nurse Practitioner Family
DX: E78.2 Mixed hyperlipidemia (principal); E03.9 Hypothyroidism, unspecified; R00.2 Palpitations; E55.9 Vitamin D deficiency, unspecified
CPT/HCPCS: 36415; 80053; 80061; 82306; 84439; 84443; G0463

== ENCOUNTER → 2022-02-01 | Outpatient (CLI) | payer MEDICARE, MEDICAID | LOC: M PLALAB 10:09 | PROVIDERS: ATTEND Physician Assistant | DX: E03.9 Hypothyroidism, unspecified (principal); M25.551 Pain in right hip; M17.12 Unilateral primary osteoarthritis, left knee ==

== ENCOUNTER → 2022-08-01 | Outpatient (CLI) | payer MEDICARE, MEDICAID ==
[2022-08-01 14:51] LABS: BASO % 0.7 % (0.0-1.0); EOS # 0.1 10^3/uL (0.0-0.5); EOS % 2.3 % (0.0-3.0); HEMATOCRIT 42.5 % (36.0-47.0); HEMOGLOBIN 13.7 g/dl (12.0-15.5); LYMPH # 1.5 10^3/uL (1.5-5.0); LYMPH % 27.6 % (24.0-44.0); MEAN CORPUSCULAR HEMOGLOBIN 29.3 pg (27.0-33.0); MEAN CORPUSCULAR HGB CONC 32.2 g/dl (32.0-36.5); MEAN CORPUSCULAR VOLUME 90.8 fl (80.0-96.0); MONO # 0.5 10^3/uL (0.0-0.8); MONO % 8.8 % (2.0-8.0); NEUTROPHILS # 3.3 10^3/uL (1.5-8.5); NEUTROPHILS % 60.1 % (36.0-66.0); PLATELET COUNT, AUTOMATED 189 10^3/uL (150-450); RED BLOOD COUNT 4.68 10^6/uL (4.00-5.40); WHITE BLOOD COUNT 5.5 10^3/uL (4.0-10.0)
[2022-08-01 15:22] LABS: ALBUMIN 3.7 GM/DL (3.2-5.2); ALT/SGPT 26 U/L (12-78); BILIRUBIN,TOTAL 0.4 MG/DL (0.2-1.0); BLOOD UREA NITROGEN 14 MG/DL (7-18); CALCIUM LEVEL 9.2 MG/DL (8.8-10.2); CARBON DIOXIDE LEVEL 26 MEQ/L (21-32); CHLORIDE LEVEL 108 MEQ/L (98-107); CHOLESTEROL LEVEL 244 MG/DL (<200); GLOMERULAR FILTRATION RATE > 60.0 (>39); GLUCOSE, FASTING 105 MG/DL (70-100); HDL CHOLESTEROL 76 MG/DL (>40); LDL CHOLESTEROL 148 MG/DL (<100); NON-HDL-C 168 MG/DL; POTASSIUM SERUM 4.2 MEQ/L (3.5-5.1); SODIUM LEVEL 140 MEQ/L (136-145); TOTAL PROTEIN 6.9 GM/DL (6.4-8.2); TRIGLYCERIDES LEVEL 101 MG/DL (<150)
[2022-08-01 15:34] LABS: HEMOGLOBIN A1c 5.1 %
[2022-08-01 15:48] LABS: TOTAL 25(OH) VITAMIN D 33.3 NG/ML (30.0-100.0)
== END ==
LOC: M PLALAB 09:21
PROVIDERS: ATTEND Physician Assistant
DX: E03.9 Hypothyroidism, unspecified (principal)

== ENCOUNTER → 2022-08-07 | Outpatient (CLI) | payer MEDICARE, MEDICAID | LOC: M WHC 13:29 | PROVIDERS: ATTEND Physician Assistant | DX: Z13.820 Encounter for screening for osteoporosis (principal); Z53.9 Procedure and treatment not carried out, unspecified reason ==

== ENCOUNTER → 2022-10-03 | Outpatient (CLI) | payer MEDICARE, MEDICAID | LOC: M WHC 09:34 | PROVIDERS: ATTEND Physician Assistant | DX: M79.604 Pain in right leg (principal) ==

== ENCOUNTER → 2022-12-11 | Outpatient (CLI) | payer MEDICARE, MEDICAID ==
[2022-12-11 14:30] LABS: BASO # 0.1 10^3/uL (0.0-0.2); BASO % 0.7 % (0.0-1.0); EOS # 0.2 10^3/uL (0.0-0.5); EOS % 2.9 % (0.0-3.0); HEMATOCRIT 42.1 % (36.0-47.0); HEMOGLOBIN 13.9 g/dl (12.0-15.5); LYMPH # 1.8 10^3/uL (1.5-5.0); LYMPH % 23.8 % (24.0-44.0); MEAN CORPUSCULAR HEMOGLOBIN 29.8 pg (27.0-33.0); MEAN CORPUSCULAR VOLUME 90.1 fl (80.0-96.0); MONO # 0.9 10^3/uL (0.0-0.8); MONO % 11.5 % (2.0-8.0); NEUTROPHILS # 4.5 10^3/uL (1.5-8.5); NEUTROPHILS % 60.8 % (36.0-66.0); PLATELET COUNT, AUTOMATED 241 10^3/uL (150-450); RED BLOOD COUNT 4.67 10^6/uL (4.00-5.40); WHITE BLOOD COUNT 7.4 10^3/uL (4.0-10.0)
[2022-12-11 14:55] LABS: ALKALINE PHOSPHATASE 132 U/L (46-116); ALT/SGPT 21 U/L (7.0-40); AST/SGOT 18 U/L (<34); BILIRUBIN,TOTAL 0.5 MG/DL (0.3-1.2); BLOOD UREA NITROGEN 13 MG/DL (9-23); CALCIUM LEVEL 9.4 MG/DL (8.3-10.6); CARBON DIOXIDE LEVEL 31 MMOL/L (20-31); CHLORIDE LEVEL 107 MMOL/L (98-107); CREATININE FOR GFR 0.82 MG/DL (0.55-1.30); GLOMERULAR FILTRATION RATE > 60.0 (>39); GLUCOSE, FASTING 86 MG/DL (74-106); POTASSIUM SERUM 4.1 MMOL/L (3.5-5.1); SODIUM LEVEL 143 MMOL/L (136-145)
[2022-12-11 14:58] LABS: THYROID STIMULATING HORMONE 13.017 uIU/ML (0.55-4.78)
[2022-12-11 14:59] LABS: FREE T4 1.09 NG/DL (0.89-1.76)
== END ==
LOC: M PLAIMG 09:37
PROVIDERS: ATTEND Physician Assistant
DX: E03.9 Hypothyroidism, unspecified (principal); M25.571 Pain in right ankle and joints of right foot

== ENCOUNTER → 2023-05-15 | Outpatient (REF) | payer MEDICARE, MEDICAID ==
[2023-05-15 16:56] LABS: CHOLESTEROL RISK RATIO 3.32 (<5); FREE T4 1.35 NG/DL (0.89-1.76); HDL CHOLESTEROL 63.1 MG/DL (>40); LDL CHOLESTEROL 119.7 MG/DL (<100); NON-HDL-C 146.9 MG/DL; THYROID STIMULATING HORMONE 0.508 uIU/ML (0.55-4.78)
[2023-05-15 16:57] LABS: TOTAL 25(OH) VITAMIN D 36.2 NG/ML (20.0-100.0)
[2023-05-15 17:09] LABS: HEMOGLOBIN A1c 5.1 % (4.0-6.0)
== END ==
LOC: M LAB REF 16:12
PROVIDERS: ATTEND Nurse Practitioner Family
DX: E66.3 Overweight (principal); E55.9 Vitamin D deficiency, unspecified; E03.9 Hypothyroidism, unspecified

== ENCOUNTER 2023-07-31 10:42 | Emergency (ER) | payer MEDICARE, MEDICAID ==
[~2023-07-31] VITALS: Ht 157.5 cm; Wt 90.0 kg
[2023-07-31] MEDS ORDERED: AMLO1TAB25 PO (11:18)
[2023-07-31 12:41] LABS: HEMATOCRIT 41.7 % (36.0-47.0); HEMOGLOBIN 14.2 g/dl (12.0-15.5); MEAN CORPUSCULAR HEMOGLOBIN 29.7 pg (27.0-33.0); MEAN CORPUSCULAR HGB CONC 34.1 g/dl (32.0-36.5); MEAN CORPUSCULAR VOLUME 87.2 fl (80.0-96.0); PLATELET COUNT, AUTOMATED 242 10^3/uL (150-450); RED BLOOD COUNT 4.78 10^6/uL (4.00-5.40); WHITE BLOOD COUNT 7.1 10^3/uL (4.0-10.0)
[2023-07-31 12:54] LABS: INR 0.99; PROTHROMBIN TIME 12.8 SECONDS (12.5-14.5)
[2023-07-31 12:55] LABS: PARTIAL THROMBOPLASTIN TIME 28.5 SECONDS (24.8-34.2)
[2023-07-31 13:04] LABS: BLOOD UREA NITROGEN 14 MG/DL (9-23); CALCIUM LEVEL 9.3 MG/DL (8.3-10.6); CARBON DIOXIDE LEVEL 26 MMOL/L (20-31); CHLORIDE LEVEL 110 MMOL/L (98-107); GLOMERULAR FILTRATION RATE > 60.0 (>39); GLUCOSE, FASTING 96 MG/DL (74-106); POTASSIUM SERUM 3.8 MMOL/L (3.5-5.1); SODIUM LEVEL 143 MMOL/L (136-145)
[2023-07-31] MEDS ORDERED: fentaNYL 100 MCG/2 ML INJECTION IV ONE (13:20)
[2023-07-31] MEDS ORDERED: NS 1,000 ML IV ONE (13:20)
[2023-07-31] MEDS ORDERED: LIDOCAINE 5% (LIDODERM) PATCH TD ONE (14:35)
[2023-07-31 14:56] VITALS: BP 160/77; TEMP 97; O2SAT 98
== END 2023-07-31 16:28 | disposition left against medical advice (07) ==
LOC: EEVIPCON 10:42 → M ED 10:42
DX: M79.672 Pain in left foot (principal); Z53.9 Procedure and treatment not carried out, unspecified reason; I10 Essential (primary) hypertension; E03.9 Hypothyroidism, unspecified; F41.9 Anxiety disorder, unspecified; F32.A Depression, unspecified; M77.32 Calcaneal spur, left foot; Z79.899 Other long term (current) drug therapy; Z88.6 Allergy status to analgesic agent; Z88.5 Allergy status to narcotic agent

== ENCOUNTER → 2023-08-12 | Outpatient (REF) | payer MEDICARE, MEDICAID ==
[~2023-08-12] MED LIST changes: +AMLO1TAB25 PO
== END ==
LOC: M LAB REF 16:19
PROVIDERS: ATTEND Nurse Practitioner Family
DX: E03.9 Hypothyroidism, unspecified (principal)

== ENCOUNTER → 2023-10-29 | Outpatient (REF) | payer MEDICARE, MEDICAID ==
[~2023-10-29] MED LIST changes: -BIOT50004 PO; +BIOT5CAP8 PO
== END ==
LOC: M LAB REF 17:42
PROVIDERS: ATTEND Nurse Practitioner Family
DX: E03.9 Hypothyroidism, unspecified (principal)

== ENCOUNTER → 2024-04-07 | Outpatient (CLI) | payer MEDICARE, MEDICAID | LOC: M WHC 13:32 | PROVIDERS: ATTEND Nurse Practitioner Family | DX: N64.9 Disorder of breast, unspecified (principal) | CPT/HCPCS: 77066; G0279 ==

== ENCOUNTER → 2024-05-28 | Outpatient (REF) | payer MEDICARE, MEDICAID ==
[2024-05-28 14:39] LABS: ALBUMIN 3.9 G/DL (3.2-5.2); ALKALINE PHOSPHATASE 123 U/L (46-116); ALT/SGPT 17 U/L (7.0-40); AST/SGOT 13 U/L (<34); BILIRUBIN,TOTAL 0.7 MG/DL (0.3-1.2); BLOOD UREA NITROGEN 11 MG/DL (9-23); CALCIUM LEVEL 10.2 MG/DL (8.3-10.6); CARBON DIOXIDE LEVEL 27 MMOL/L (20-31); CHLORIDE LEVEL 108 MMOL/L (98-107); CHOLESTEROL LEVEL 188 MG/DL (<200); CHOLESTEROL RISK RATIO 2.96 (<5); CREATININE FOR GFR 0.78 MG/DL (0.55-1.30); GLOMERULAR FILTRATION RATE > 60.0 (>39); GLUCOSE, FASTING 90 MG/DL (74-106); HDL CHOLESTEROL 63.3 MG/DL (>40); LDL CHOLESTEROL 108.9 MG/DL (<100); NON-HDL-C 124.7 MG/DL; POTASSIUM SERUM 4.5 MMOL/L (3.5-5.1); SODIUM LEVEL 141 MMOL/L (136-145); TOTAL PROTEIN 6.7 G/DL (5.7-8.2); TRIGLYCERIDES LEVEL 79 MG/DL (<150)
[2024-05-28 14:43] LABS: THYROID STIMULATING HORMONE 0.025 uIU/ML (0.55-4.78)
[2024-05-28 15:04] LABS: HEMOGLOBIN A1c 4.9 % (4.0-6.0)
== END ==
LOC: M LAB REF 12:42
PROVIDERS: ATTEND Nurse Practitioner Family
DX: I10 Essential (primary) hypertension (principal); Z13.6 Encounter for screening for cardiovascular disorders

== ENCOUNTER → 2024-07-19 | Outpatient (REF) | payer MEDICARE, MEDICAID | LOC: M LAB REF 08:10 | PROVIDERS: ATTEND Otolaryngology | DX: L72.0 Epidermal cyst (principal) ==

== ENCOUNTER → 2024-08-16 | Outpatient (REF) | payer MEDICARE, MEDICAID | LOC: M LAB REF 16:37 | PROVIDERS: ATTEND Nurse Practitioner Family | DX: E03.9 Hypothyroidism, unspecified (principal) ==

== ENCOUNTER → 2024-11-15 | Outpatient (REF) | payer MEDICARE, MEDICAID | LOC: M LAB REF 16:21 | PROVIDERS: ATTEND Nurse Practitioner Family | DX: E03.9 Hypothyroidism, unspecified (principal) ==

== ENCOUNTER → 2025-01-24 | Outpatient (REF) | payer MEDICARE, MEDICAID | LOC: M LAB REF 12:21 | PROVIDERS: ATTEND Nurse Practitioner Family | DX: E03.9 Hypothyroidism, unspecified (principal) ==

== ENCOUNTER → 2025-05-03 | Outpatient (REF) | payer MEDICARE, MEDICAID ==
[2025-05-03 15:39] LABS: BASO # 0.0 10^3/uL (0.0-0.2); BASO % 0.4 % (0.0-1.0); EOS # 0.1 10^3/uL (0.0-0.5); EOS % 2.1 % (0.0-3.0); LYMPH # 1.3 10^3/uL (1.5-5.0); LYMPH % 19.2 % (24.0-44.0); MONO # 0.7 10^3/uL (0.0-0.8); MONO % 9.5 % (2.0-8.0); NEUTROPHILS # 4.7 10^3/uL (1.5-8.5); NEUTROPHILS % 68.5 % (36.0-66.0); PLATELET COUNT, AUTOMATED 222 10^3/uL (150-450)
== END ==
LOC: M LAB REF 14:59
PROVIDERS: ATTEND Nurse Practitioner Family
DX: E03.9 Hypothyroidism, unspecified (principal); R53.83 Other fatigue

== ENCOUNTER → 2025-07-11 | Outpatient (REF) | payer MEDICARE, MEDICAID ==
[2025-07-11 16:50] LABS: FREE T4 1.16 NG/DL (0.89-1.76)
== END ==
LOC: M LAB REF 16:17
PROVIDERS: ATTEND Nurse Practitioner Family
DX: E03.9 Hypothyroidism, unspecified (principal)